=== PATIENT | male | born 1985 | race Caucasian/White ===

== ENCOUNTER → 2021-04-26 10:18 | Outpatient (CLI) | payer BC, SELFPAY ==
--- NOTE | ~2021-04-26 | XR_ITS ---
EXAMINATION: XR wrist RT min 3V DATE: 04/26/2021 10:37 INDICATION: Right wrist pain. TECHNIQUE: 4 views of right wrist were obtained. COMPARISON: None. FINDINGS: Bone alignment is normal. No fracture. Joint spaces are well maintained. IMPRESSION: 1. Normal right wrist. Reviewed, dictated and finalized at location A. IMPRESSION: 1. Normal right wrist.
--- NOTE | ~2021-04-26 | XR_ITS ---
EXAMINATION: XR hand RT 2V DATE: 04/26/2021 10:37 INDICATION: Right hand pain. TECHNIQUE: 3 views of right hand were obtained. COMPARISON: None. FINDINGS: Bone alignment is normal. No fracture. There is mild osteoarthritis of distal radioulnar jimenez int and third metacarpophalangeal joint. IMPRESSION: 1. Mild polyarticular osteoarthritis. Reviewed, dictated and finalized at location A.
== END ==
PROVIDERS: PCP Family Medicine; Visit Provider Nurse Practitioner Family
DX: M25.531 Pain in right wrist (principal); M19.041 Primary osteoarthritis, right hand
CPT/HCPCS: 73110; 73120

== ENCOUNTER 2021-11-07 16:52 | Outpatient (CLI) | payer BC, SELFPAY ==
--- NOTE | ~2021-11-07 | XR_ITS ---
EXAMINATION: XR foot LT min 3V DATE: 11/07/2021 18:00 INDICATION: Left foot pain. TECHNIQUE: 4 views of left foot were obtained. COMPARISON: None. FINDINGS: There is moderate hallux valgus. No fracture. There is mild osteoarthritis of first metatar sophalangeal joint. There is an enthesophyte at plantar aspect of calcaneal tuberosity. There is hete rotopic ossification in the area of Achilles tendon. IMPRESSION: 1. Moderate hallux valgus. 2. Mild osteoarthritis of first metatarsophalangeal joint. 3. 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 Reviewed, dictated and finalized at location A.
--- NOTE | ~2021-11-07 | MR_ITS ---
EXAMINATION: MR wrist RT wo con DATE: 11/07/2021 17:46 INDICATION: Dorsal right wrist pain TECHNIQUE: Magnetic resonance imaging (MRI) of the right wrist was performed without intravenous cont rast. Sequences performed include axial PD-weighted FSE and PD-weighted FS FSE, coronal PD-weighted F S FSE and T1-weighted SE, and sagittal PD-weighted FS FSE and PD-weighted FSE. COMPARISON: Right wrist radiographs dated 07/24/2021 FINDINGS: Intrinsic ligaments: There appears to be a likely central perforation of the scapholunate ligament. On the dorsal and vola r components remain intact. The lunotriquetral ligament is normal. Triangular fibrocartilage complex (TFCC): There is either marked thinning or more likely tear of the radial side of the central fibrocartilagin ous disc of the triangular fibrocartilage complex. There is adjacent mild cystic change at the ulnar side of the proximal articular surface of the lunate. These findings may be related to ulnocarpal imp action with 1-2 mm ulnar positive variance evident on the prior radiographs. There is also partial te ar of the foveal attachment of the triangular fibrocartilage complex with additional mild cystic haile ge underlying the foveal the ulna. The ulnar styloid attachment as well as the dorsal and volar radio ulnar ligaments are normal. The ulnar collateral ligament, ulnotriquetral ligament and meniscal homol ogue are normal. The extensor carpi ulnaris tendon sheath is normal. Extensor wrist: Minimal tendinopathy and small longitudinal split tear of the extensor carpi ulnaris tendon at the le poonam of the ulnar styloid process. Extensor tendons of the wrist are otherwise normal. No tenosynoviti s. Flexor wrist: The flexor tendons of the wrist are normal. No abnormality in the carpal tunnel with normal median n erve. Guyon's canal: Guyon's canal including the ulnar nerve and artery are normal. Bones/other: No fracture, avascular necrosis or pathologic marrow replacing process. Mild osteoarthritis of the mi dcarpal joint at the articulation between the hamate and the type II lunate with minimal cystic velazquez e at the proximal tip of the hamate. Remaining joint spaces are normal. IMPRESSION: 1. Partial tear of the triangular fibrocartilage complex including the foveal attachment in the centr al fiber cartilaginous disc, the latter which may be related to ulnocarpal impaction with 1 mm ulnar positive variance on prior radiographs and mild cystic change at the ulnar aspect of the proximal arun ate. 2. Minimal tendinopathy and very small longitudinal split tear of the extensor carpi ulnaris tendon. 3. Mild osteoarthritis at the lunohamate articulation of the midcarpal joint. Reviewed, dictated and finalized at location A. IMPRESSION: 1. Partial tear of the triangular fibrocartilage complex including the foveal a ttachment in the central fiber cartilaginous disc, the latter which may be rela bassam to ulnocarpal impaction with 1 mm ulnar positive variance on prior radiogra phs and mild cystic change at the ulnar aspect of the proximal lunate. 2. Minimal tendinopathy and very small longitudinal split tear of the extensor carpi ulnaris tendon. 3. Mild osteoarthritis at the lunohamate articulation of the midcarpal joint.
== END 2021-11-07 16:53 | disposition home or self-care (01) ==
PROVIDERS: PCP Family Medicine; Visit Provider Orthopaedic Surgery
DX: M20.12 Hallux valgus (acquired), left foot (principal); M19.031 Primary osteoarthritis, right wrist; M19.072 Primary osteoarthritis, left ankle and foot
CPT/HCPCS: 73221; 73630

== ENCOUNTER 2021-12-09 14:30 | Outpatient (RCR) | payer BC, SELFPAY ==
--- NOTE | 2021-11-28 17:29 | PTOPEVAL ---
PHYSICAL THERAPY EVALUATION AND PLAN OF CARE Thank you for referring Jamin Steel to [facility][Note 3].? The patient is scheduled to be seen for therapy? 1x/week for 3 weeks. Please review, sign, date and return this plan of care DARCIE. I agree with and certify that the following plan of care is medically necessary. 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 States that he wore an ankle splint for about a month. Then started wearing tennis shoes again. He tells me that the bruising is coming back. States no pain with walking. Stair climbing the tendons feel tight. Will walk sideways down the steps. Pain Score 0: Self Report Lower Extremity Range of Motion Ankle/Foot Range of Motion Left Foot/Toe Range of Motion Comments increased tone and spasticity influences ankle ROM; whe knee is extended he rests in 45deg of plantarflexion and has little to no active dorsiflexion; when knee is flexed he is able to at the least -10deg from neutral Lower Extremity Muscle Strength Testing Ankle Strength Left Ankle Dorsiflexion Strength 4 Good Ankle Plantarflexion Strength 4 Good Ankle Eversion Strength 4 Good Ankle Inversion Strength 4 Good Ankle Strength Comments generally normal strength; MMT skewed due to tonal influence performs 10 bilateral heel raises; unable to heel walk likely due to extensor toe preventing dorsiflexion with knee extended Palpation mild edema noted at lateral malleolus - non-tender palpation; states he has not feeling in the left side of body due to stroke Stair Climbing Assessment Technique Side Step Stair Climbing Di
--- NOTE | 2021-12-16 17:48 | PCPTNOTE ---
Patient did not show up for scheduled appointment this date.
--- NOTE | 2021-12-17 15:28 | PCPTNOTE ---
PHYSICAL THERAPY DISCHARGE NOTE Attending Provider: Bryce Quigley APN Patient:Jamin Steel Date of :1985 Patient has not returned for any further treatments since 12/09/2021, therefore will be discharged at this time. Patient?s initial visit was on 11/28/2021 and had a total of3 visits. He participated in physical therapy following a fall which resulted in a sprained ankle. Upon initial evaluation he had no pain and minimal strength deficit and balance deficit. During his attended sessions he tolerate activity and strengthening very well and was provided with HEP. Thank you for referring this patient to [facility]. Please review, sign, date and return this discharge summary DARCIE. I have been updated about the patient's current status and I agree with discharge from the above service at this time. Referring Physician Date
== END 2021-12-18 08:50 | disposition home or self-care (01) ==
LOC: ANHPT 14:30
PROVIDERS: PCP Family Medicine; Referring Provider Nurse Practitioner; Visit Provider Nurse Practitioner
DX: M25.572 Pain in left ankle and joints of left foot (principal)
CPT/HCPCS: 97110; 97112; 97161; 97530

== ENCOUNTER 2022-04-08 15:30 | Outpatient (RCR) | payer BC, SELFPAY ==
--- NOTE | 2022-02-14 10:14 | PTOPEVAL ---
PHYSICAL THERAPY INITIAL EVALUATION. Thank you for referring Jamin Steel to [facility].? The patient is scheduled to be seen for therapy? 1x/week for 4 weeks. Please review, sign, date and return this plan of care DARCIE. I agree with and certify that the following plan of care is medically necessary. Referring Physician Date Attending Provider: Tomas Frazier MD *PT Outpatient Evaluation Start: 02/14/22 Evaluation Information Diagnosis L ankle sprain Onset 2 months Subjective Information Pt states he was walking down Query Text:As Reported By Patient/ a set of step when he rolled Family his ankle. Pt states he can standing for 8 hours before needing to sit down. Pt states he walks the same as he usual does. He has a stroke at making him R side- dominate. Pt states since his ankle sprain, two times he has had a pain that makes it hard to stand on. Pt states it feels more stiff than usual Prior Level of Function Occupation works at [employer] Pain Assessment Self Report Pain Assessment Left Ankle(s) Reported Pain Level 3 Pain Description Aching,Dull Pain Frequency Acute,Intermittent Lowest Pain Intensity 3 Greatest Pain Intensity 3 Pain Aggravating Factors None Lower Extremity Range of Motion Ankle/Foot Range of Motion Right Ankle Dorsiflexion With Knee Extension 0 active Ankle Dorsiflexion With Knee Extension 5 passive Ankle Dorsiflexion With Knee Flexed 15 active Ankle Dorsiflexion With Knee Flexed 15 passive Ankle Plantarflexion Range of Motion - 60 active Ankle Eversion Range of Motion - Active 10 Ankle Eversion Range of Motion - Passive 12 Ankle Inversion Range of Motion - Active 15 Ankle Inversion Range of Motion -passive 30 Foot/Toe Range of Motion Comments 1st met passive extension 60 deg Left Ankle Dorsiflexion With Knee Extension -50 active Ankle Dorsiflexion With Knee Extension 10 passive Ankle Dorsiflexion With Knee Flexed -60 active Ankle Dorsiflexion With Knee Flexed 10 passive Ankle Plantarflexion Range of Motion - 55 active Ankle Eversion Range of Motion - Active 0 Ankle Eversion Range of Motion - Passive 5 Ankle Inversion Range of Motion - Active 0 Ankle Inversion Range of Motion -passive 25 Foot/Toe Range of Motion Comments 1st met passive extension 30 deg Lower Extremity Muscle Strength Testing Gross Lower Extremity Strengt
--- NOTE | 2022-03-27 08:08 | PCPTNOTE ---
Called and left voicemail for patient regarding having no follow up appointment scheduled. If we do not not hear back from him in the next week he will be discharged.
--- NOTE | 2022-04-24 13:50 | PTOPDC ---
Assessment and note entered by Lupillo Scott, PT Evaluation Information Assessment Status Progress Jamin comes into the clinic today reporting he resprained his L ankle. The ankle shows no tenderness with touch or range of motion. No swelling is noted. Patient is wearing shoes that are falling apart and an old heel lift. Recommend to patient to try to get some sort of bracing to better support his L ankle and new shoes. Improvement in footwear will probably be more beneficial than continued physical therapy. Discharged from physical therapy services.
== END 2022-05-06 13:54 | disposition home or self-care (01) ==
LOC: ANHGOSHPT 15:30
PROVIDERS: PCP Family Medicine; Visit Provider Orthopaedic Surgery
DX: S93.402D Sprain of unspecified ligament of left ankle, subsequent encounter (principal)
CPT/HCPCS: 97110; 97112; 97140; 97161

== ENCOUNTER → 2023-02-23 13:51 | Outpatient (CLI) | payer BC, SELFPAY ==
--- NOTE | ~2023-02-23 | US_ITS ---
EXAMINATION: US soft tissue head and neck DATE: 02/23/2023 14:15 INDICATION: Nontoxic goiter, unspecified. TECHNIQUE: Multiple ultrasound images of the thyroid were obtained. COMPARISON: Ultrasound 02/25/2016, cervical spine CT 05/11/12 FINDINGS: The right thyroid lobe measures 8.1 x 4.5 x 3.0 cm. The left thyroid lobe measures 11.3 x 6.4 x 5.7 cm. There are nodules involving almost all of the thyroid with similar ultrasound appearance without normal intervening parenchyma. In the right thyroid lobe, there is a 5.6 cm solid, isoechoic, wider than tall nodule with lobulated margin without echogenic foci (TR4). In the left thyroid lobe, there is a 10.1 cm solid, isoechoic, wider than tall nodule with smooth margin without echogenic foci (TR3) . IMPRESSION: 1. Multinodular goiter with enlargement from 02/25/2016. Consider ultrasound-guided fine-needle aspira tion. Reviewed, dictated and finalized at location E. IMPRESSION: 1. Multinodular goiter with enlargement from 02/25/2016. Consider ultrasound-bandar ded fine-needle aspiration.
== END ==
PROVIDERS: PCP Family Medicine; Visit Provider Otolaryngology
DX: E04.2 Nontoxic multinodular goiter (principal)
CPT/HCPCS: 76536

== ENCOUNTER 2023-10-04 00:47 | Emergency (ER) | payer BC, SELFPAY ==
--- NOTE | ~2023-10-04 | XR_ITS ---
XR chest 1V portable DATE: 10/04/2023 02:01 INDICATION: Shortness of breath TECHNIQUE: Portable upright AP chest views on October 04, 2023 at 0 154 and 0155 hours COMPARISON: None FINDINGS: Normal heart size. No hilar or mediastinal enlargement. No pulmonary infiltrate or consolid ation, pleural effusion or pulmonary vascular congestion or pneumothorax. Mild thoracic levoscoliosis. IMPRESSION: No active cardiopulmonary disease Reviewed, dictated and finalized at location A.
[2023-10-04 00:47] VITALS: BP 158/121; PULSE 91; RESP 23; TEMP 36.7; O2SAT 100
[2023-10-04 00:56] VITALS: PULSE 87; O2SAT 100; O2SAT 99
--- NOTE | 2023-10-04 00:58 | ECG_ITS ---
Measurements Intervals [place] Rate: 89 P: 36 [place]: 164 QRS: 61 QRSD: 101 T: 31 QT: 357 AVG RR: 668 QTc: 404 QTCB: 436 QTCF: 408 Interpretive Statements SINUS RHYTHM NORMAL ECG SEE SCANNED COPY FOR SIGNATURE MTDD
[2023-10-04 02:05] VITALS: BP 146/90; PULSE 100; RESP 18; O2SAT 98
[2023-10-04 02:42] LABS: Basophils Percent Auto 0.6 % (0.2-1.2); Eosinophils Absolute Auto 0.2 K/mm3 (0-0.3); Eosinophils Percent Auto 2.3 % (0-4.4); Hematocrit 40.5 % (42.0-52.0); Hemoglobin 13.6 g/dL (14.0-18.0); Immature Granulocyte Absolute 0.02 K/mm3 (0.00-0.031); Immature Granulocyte Percent A 0.3 % (0-0.5); Lymphocytes Absolute Auto 2.21 K/mm3 (0.9-3.2); Lymphocytes Percent Auto 32.4 % (18.3-44.2); Mean Corpuscular HGB Conc 33.6 g/dl (32-36); Mean Corpuscular Hemoglobin 28.3 pg (26-34); Mean Corpuscular Volume 84.2 fl (80-100); Mean Platelet Volume 9.4 fl (7.4-10.4); Monocytes Absolute Auto 0.7 K/mm3 (0.1-0.6); Monocytes Percent Auto 10.1 % (2.6-8.5); Neutrophils Absolute Auto 3.7 K/mm3 (1.3-6.7); Neutrophils Percent Auto 54.3 % (45.5-73.1); Platelet Count Result 307 k/mm3 (150-375); Red Blood Count 4.81 M/mm3 (4.6-6.20); Red Cell Distribution Width 13.5 % (11.5-14.5); White Blood Count 6.8 K/mm3 (4.5-10.0)
[2023-10-04 02:53] LABS: Alanine Aminotransferase 25 U/L (6-50); Albumin Level 4.8 g/dL (3.5-5.1); Alkaline Phosphatase 88 U/L (38-126); Anion Gap 11 mmol/L (4-12); Aspartate Amino Transferase 26 U/L (17-59); Bilirubin,Total 0.7 mg/dL (0.2-1.3); Blood Urea Nitrogen 11 mg/dL (9-20); Calcium 9.7 mg/dL (8.4-10.2); Carbon Dioxide 23 mmol/L (22-30); Chloride 104 mmol/L (98-107); Creatine Kinase 142 U/L (55-170); Estimated CRCL calculation 148 ml/min; Estimated Glomerular Filt Rate > 60; Glucose 118 mg/dL (65-110); Lactic Acid Reflex 2.1 mmol/L (0.7-2.0); Potassium 3.8 mmol/L (3.4-5.0); Sodium 138 mmol/L (137-145)
[2023-10-04 03:46] VITALS: BP 148/95; PULSE 96; RESP 17; O2SAT 99
--- NOTE | 2023-10-04 04:15 | ED.GENADULT ---
HPI - General Adult General Chief complaint: Seizure Stated complaint: SZ W/ Hx OF EPILEPSY Time Seen by Provider: 10/04/23 04:11 History of Present Illness HPI narrative: Patient is a 30-year-old male who presents to the emergency department this morning due to concern for tremors. Patient does have a history of seizure disorder and today went to go see a movie which had a lot of flashing lights and shortly after started to have some tremors which was concerning to him as he was concerned he might go into a seizure. Patient does have a history of epilepsy and does take his seizure medications regularly. He took some Tylenol prior to arrival upon arrival patient noted that the tremoring has tab. He is currently denying any symptoms. Patient states that he feels well and he is answering all questions appropriately and denying any headache, dizziness, focal weakness acute Related Data Home Medications Medication Instructions Recorded Confirmed eslicarbazepine 800 mg tablet 800 mg PO DAILY 06/01/19 04/22/23 (Aptiom) lamotrigine 200 mg tablet 600 mg PO BID 10/12/19 04/22/23 cyanocobalamin (vitamin B-12) 1,000 mcg PO DAILY 05/04/23 1,000 mcg tablet Allergies Allergy/AdvReac Type Severity Reaction Status Date / Time Penicillins Allergy Severe Seizure Verified 10/04/23 00:55 Review of Systems Review of Systems: All systems are reviewed and are negative unless stated otherwise in the HPI. [facility] Past Medical History Medical History Acute non-recurrent maxillary sinusitis Acute sinusitis BMI 36.0-36.9,adult Cellulitis ear and ear canal COVID-19 (07/04/20) COVID test on 07/11/2020 positive Enlarged thyroid (~05/11/12) Multinodular goiter on ultrasound 02/23/2023 with 5.6 cm nodule right lobe and 10.1 cm nodule in the left lobe increased from previous study. TSH normal at 2.02 on 04/28/2023. Epilepsy Exposure to COVID-19 virus High cholesterol Left foot pain (~08/2021) Obesity (BMI 35.0-39.9 without comorbidity) Pharyngitis Right hand pain Right otitis externa Right wrist pain Seborrhea ear canal Superficial laceration of scalp Vitamin B12 deficiency (04/28/23) level low at 347 with goal greater than 400 with hemoglobin 14.4 on 04/28/2023. Surgical History Surgical History H/O foot surgery H/O hand surgery Family History Family History Mother Family history of bipolar disorder Hypertension Other Heart disease Social History Social History Social History: Caffeine-tea Smoking status: Former smoker Alcohol intake: former Substance use: never Substance use type: does not use Lack of Transportation: No Lack of Food: Never True Current Housing: Decline to Answer Concerned About Future Housing: Decline to Answer Difficulty Paying Gas/Electric Bills: Decline to Answer Difficulty Paying for Meds: YES Currently Unemployed: No Education: Bachelor's Degree Difficulty w/ Childcare or Family Care: Decline to Answer Living arrangements: with family Occupation/Education: unemployed Gender identity (if verbalized by the patient): Male Exam Narrative: General: Alert, awake, afebrile, in no acute distress. Cardiovascular: Regular rate and rhythm, no murmurs, rubs or gallops, no peripheral edema. Respiratory: Clear to auscultation bilaterally, no tachypnea, no wheezing, no rhonchi, no rubs, no respiratory distress. Abdomen: Soft, nontender, nondistended, no rebound, no guarding, no peritoneal signs. Musculoskeletal: No joint swelling or deformity, normal muscle tone. Skin: No rashes or petechia, no signs of infection. Psychiatric: Alert and oriented, normal behavior and judgment for situation. Neurological: Alert and oriented to person, place, and time
[2023-10-04 05:39] LABS: Reflex Lactic Acid Yes or No Add Lactic
== END 2023-10-04 04:26 | disposition home or self-care (01) ==
LOC: ANHED 04:23
PROVIDERS: Emergency Provider Emergency Medicine; PCP Family Medicine
DX: G40.909 Epilepsy, unspecified, not intractable, without status epilepticus (principal); Z86.16 Personal history of COVID-19; E78.00 Pure hypercholesterolemia, unspecified; E04.2 Nontoxic multinodular goiter; E53.8 Deficiency of other specified B group vitamins; E66.9 Obesity, unspecified; Z68.36 Body mass index [BMI] 36.0-36.9, adult; Z87.891 Personal history of nicotine dependence
CPT/HCPCS: 36415; 71045; 80053; 82550; 83605; 85025; 93005; 99283

== ENCOUNTER 2024-08-08 13:09 | Emergency (ER) | payer BC, SELFPAY ==
--- NOTE | ~2024-08-08 | XR_ITS ---
EXAMINATION: XR chest 2V DATE: 08/08/2024 13:49 INDICATION: Illness for 10 days. TECHNIQUE: Frontal and lateral views of the chest were obtained. COMPARISON: Chest single view 10/04/2023 FINDINGS: There is no pneumonia, pleural effusion, or pneumothorax. The heart size is normal. IMPRESSION: 1. No acute cardiopulmonary disease. Reviewed, dictated and finalized at location A. TANT GENERAL
[2024-08-08 13:23] VITALS: BP 145/85; PULSE 93; RESP 16; TEMP 36.8; O2SAT 97
--- NOTE | 2024-08-08 13:35 | ED_ITS ---
HPI - URI/Sore Throat General Chief Complaint: Upper Respiratory Infection Stated Complaint: Chest Congestion Time Seen by Provider: 08/08/24 13:30 Source: patient, RN notes reviewed and old records reviewed Mode of arrival: ambulatory Limitations: no limitations History of Present Illness HPI Narrative: 39 ear old male presents to [facility] care with complaints of being ill for the past 10 days with thick white sinus drainage, productive cough of white mucous also. Patient reports that he has had antibiotics with no improvement in his symptoms. Patient reports that he has had exertional dyspnea denies any fevers, chills or an nausea, vomiting or body aches,sore throat or any headaches. Patient reports that he has taken Mucinex with no improvement. MD elicited complaint: cough, rhinorrhea and nasal congestion Onset (ago): day(s) () Severity: moderate Treatments prior to arrival: antibiotics and other (Mucinex) Related Data Home Medications ?Medication ?Instructions ?Recorded ?Confirmed ?Last Taken ?Type eslicarbazepine 800 mg tablet 800 mg PO DAILY 06/01/19 07/06/24 Unknown History (Aptiom) lamotrigine 200 mg tablet 600 mg PO BID 10/12/19 07/06/24 Unknown History Allergies Allergy/AdvReac Type Severity Reaction Status Date / Time Penicillins Allergy Severe Seizure Verified 08/08/24 13:27 Review of Systems Review of Systems: CONSTITUTIONAL: Reports some malaise, no chills, sweats, or fever. EYES: Denies visual changes, redness, or discharge. ENT: Reports rhinorrhea, congestion, sinus pain,no otalgia and no sore throat. CARDIOVASCULAR: Denies chest pain, palpitations, or edema. RESPIRATORY: Reports productive cough.? States some dyspne with exertion GASTROINTESTINAL: Denies abdominal pain, nausea, vomiting, diarrhea SKIN: Denies rash or itching. MUSCULOSKELETAL: Denies myalgia. NEUROLOGIC: Denies headache. All systems reviewed & are unremarkable except as noted in HPI and below PMFSH Past Medical History Medical History Acute non-recurrent maxillary sinusitis BMI 35.0-35.9,adult Hypersomnia history of LUISA on home sleep study 5 years ago untreated. Acute sinusitis Vitamin B12 deficiency (04/28/23) level low at 347 with goal greater than 400 with hemoglobin 14.4 on 04/28/2023. Ear itching Otitis externa, fungal, right ear Hypothyroid Enlarged thyroid (~05/11/12) Multinodular goiter on ultrasound 02/23/2023 with 5.6 cm nodule right lobe and 10.1 cm nodule in the left lobe increased from previous study. TSH normal at 2.02 on 04/28/2023. BMI 36.0-36.9,adult Obesity (BMI 35.0-39.9 without comorbidity) Seborrhea ear canal Cellulitis ear and ear canal Left ankle sprain Left foot pain (~08/2021) High cholesterol Epilepsy Right wrist pain Right hand pain COVID-19 (07/04/20) COVID test on 07/11/2020 positive Pharyngitis Exposure to COVID-19 virus Right otitis externa Superficial laceration of scalp Body mass index (BMI) 40.0-44.9, adult (01/06/19) Surgical History Surgical History H/O foot surgery H/O hand surgery Family History Family History Mother Family history of bipolar disorder Hypertension Other Heart disease Social History Social History Social History: Caffeine-tea Smoking status: Former smoker Alcohol intake: former Substance use: never Substance use type: does not use Lack of Transportation: No Lack of Food: Never True Current Housing: Decline to Answer Concerned About Future Housing: Decline to Answer Difficulty Paying Gas/Electric Bills: Decline to Answer Difficulty Paying for Meds: YES Currently Unemployed: No Education: Bachelor's Degree Difficulty w/ Childcare or Family Care: Decline to Answer Living arrangements: with family Occupation/Education: unemployed Gender identity (if verbalized by the patient): Male Comments At time of signature, agree with nursing past medical, surgical, social and family history. There is no relevant family history pertinent to the presenting complaint Exam Narrative: GENERAL: Well-appearing, well-nourished, and in no acute distress. HEAD: Normocephalic EYES: PERRLA, conjunctivae clear ENT: Nares clear, turbinates edematous and erythematous, thick white discharge. Mucous membranes moist. TM pearly bautista with dull light reflex bilaterally; no tragal tenderness. Oropharynx erythematous without lesions. Tonsils not enlarged and without exudate, no drooling, no hoarseness, no trismus, uvula midline.post nasal drainage NECK: Supple. No lymphadenopathy CHEST: Clear to auscultation, breath sounds equal. No wheezing, rhonchi, rales, or stridor. No respiratory distress, speaks in full sentences.productive cough SAO2 97% on room air HEART: Regular rate and rhythm. No murmur heard. SKIN: Warm, dry, no rash. NEURO: Alert and oriented x3. PSYCH: Normal mood and affect Course Course Emergency Course: Patient is aware of diagnosis, understands and agrees to treatment plan.? Anticipatory guidance given.? Patient agrees to follow-up as directed and is aware of reasons to seek care at the emergency department. Portions of this record may have been created with voice recognition software Level of Care: Express Care Visit Vital Signs Vital signs: Vital Signs Temperature 36.8 C 08/08/24 13:23 Pulse Rate 93 08/08/24 13:23 Respiratory Rate 16 08/08/24 13:23 Blood Pressure 145/85 H 08/08/24 13:23 Pulse Oximetry 97 08/08/24 13:23 Oxygen Delivery Room Air 08/08/24 13:23 Temperature 36.8 C 08/08/24 13:23 Pulse Rate 93 08/08/24 13:23 Respiratory Rate 16 08/08/24 13:23 Blood Pressure 145/85 H 08/08/24 13:23 Pulse Oximetry 97 08/08/24 13:23 Oxygen Delivery Room Air 08/08/24 13:23 Reviewed MDM - URI/Sore Throat MDM Narrative Medical decision making narrative: Differential diagnosis considered: Lemos virus, strep pharyngitis, allergic rhinitis, upper respiratory tract infection, sinusitis, rhinosinusitis, nasopharyngitis. viral pharyngitis, otitis media, otitis externa, pneumonia, bronchitis, viral cough syndrome, viral syndrome, and influenza.? Exam findings show no acute concerns or changes; patient is non-toxic appearing and is in no distress.? Patient is appropriate for outpatient treatment and follow-up. Differential Diagnosis Differential diagnosis: Likely upper respiratory infection, sinusitis, viral infection, bronchitis and other (acute cough) Medical Records Attestation: I reviewed the patient's medical records. Lab Data Attestation: I reviewed the patient's lab results. Imaging Data Attestation: I personally reviewed and interpreted this imaging study as follows: My impression: no acute cardiopulmonary disease Radiologist's impression: [facility] [address] [facility] [place] [address] XRay Report Signed Patient: Jamin Steel : 1985 MR#: [id number] Age: 39 Acct:[id number] Loc: [facility] ADM Date: 08/08/24Attending Dr: Ordering Physician: Deborah Chow APRN Date of Service: 08/08/24 Procedure(s): XR chest 2V Accession Number(s): [id number] cc: SUPERVISOR [employer] ASSEMBLY PHYSICIAN; Deborah hCow THERAPEUTIC MENTOR~ EXAMINATION: XR chest 2V DATE: 08/08/2024 13:49 INDICATION: Illness for 10 days. TECHNIQUE: Frontal and lateral views of the chest were obtained. COMPARISON: Chest single view 10/04/2023 FINDINGS: There is no pneumonia, pleural effusion, or pneumothorax. The heart size is normal. IMPRESSION: 1. No acute cardiopulmonary disease. Reviewed, dictated and finalized at location A. INTERN Please be advised this is a medical document. It is intended for [id number] communication. It is written in medical language and may contain unfamiliar abbreviations or verbiage. Medical documents are intended to carry relevant information, facts as evident, and the clinical opinion of the practitioner at the time of the encounter. This report may have been done utilizing a voice recognition system. Attempts have been made to correct errors. However, there may be uncorrected grammatical, spelling, and recognition errors present. The file time of this note does not necessarily represent the time of service. Dictated By: Elroy Roach MD 08/08/24 1353 Signed By: <Electronically signed by Elroy Roach MD in OV> Critical Care Time Critical Care Time Critical Care Time: No Discharge Plan Discharge Clinical Impression: Upper respiratory infection Qualifiers: URI type: unspecified URI Qualified Code(s): J06.9 - Acute upper respiratory infection, unspecified Patient Disposition: Home, Self-Care Condition: Stable Instructions: Upper Respiratory Infection (ED) Additional Instructions: Increase fluids especially juices and water [id number] cough and cold medicine of your choice for your symptoms monitor your temperature Cough tablets as directed for cough--do not bite, chew or suck on--swallow whole Tylenol or ibuprofen for any fever pain Steroids as directed--take with food heat to the face 20-30 minutes 4-6 times a day for pain Salt water gargles, throat lozenges or throat sprays as desired If your symptoms persist, change or worsen significantly before you can contact your personal physician then please, without delay, go to the emergency department for further evaluation. Follow-up with PCP in 7-10 days or sooner if needed Follow up with PCP soon in regards to your blood pressure which is elevated above threshold for referral. Blood pressure above 120/80 may indicate pre- hypertension. Patient Language: Japanese Prescriptions: New benzonatate 200 mg capsule 200 mg PO TID PRN (Reason: cough) Qty: 14 0RF prednisone 20 mg tablet 20 mg PO BID Qty: 10 0RF Rx Instructions: take in am and early evening with food for 5 days No Action lamotrigine 200 mg tablet 600 mg PO BID aripiprazole [Abilify] 2 mg tablet 2 mg PO DAILY Qty: 30 11RF clotrimazole 1 % solution 1 applic topical TID Qty: 30 3RF Rx Instructions: put 4 drops in each ear t.i.d. with ear up for 30 seconds afterwards clobetasol 0.05 % cream 1 applic topical .qd-bid Qty: 15 1RF Rx Instructions: External ear one to two times per day Aptiom 800 mg tablet 800 mg PO DAILY atorvastatin 20 mg tablet 20 mg PO DAILY Qty: 90 3RF azithromycin 250 mg tablet See Rx Instructions PO .COMPLEX Qty: 6 0RF Rx Instructions: For 250 mg dose pack: take 500 mg today (day 1), then 250 mg for 4 days (days 2-5) PO Follow-up/Referrals: PHYSICIAN,SUPERVISOR [employer] ASSEMBLY [Primary Care Provider] - Time of Disposition: 14:28 Quality Eddi Coma Scale Eyes: Open Verbal: Oriented and Alert Motor: Follows Commands Eddi Coma Total Score: 15
== END 2024-08-08 14:32 | disposition home or self-care (01) ==
PROVIDERS: Emergency Provider Registered Nurse
DX: J06.9 Acute upper respiratory infection, unspecified (principal); E53.8 Deficiency of other specified B group vitamins; E03.9 Hypothyroidism, unspecified; E78.00 Pure hypercholesterolemia, unspecified; Z87.891 Personal history of nicotine dependence
CPT/HCPCS: 71046; 99213; G0463

== ENCOUNTER 2024-10-26 10:19 | Emergency (ER) | payer BC, SELFPAY ==
[2024-10-26 10:31] VITALS: BP 154/87; PULSE 83; RESP 16; TEMP 36.7; O2SAT 98
--- NOTE | 2024-10-26 10:44 | PC.NURSE ---
[id number] To room to applications consultant genital exam
--- NOTE | 2024-10-26 10:45 | ED.MALEGU ---
HPI - Male Genitourinary General Chief complaint: Urogenital-Male Stated complaint: BURNING URINATION/GENITAL PAIN Time Seen by Provider: 10/26/24 10:35 Source: patient and RN notes reviewed Mode of arrival: ambulatory Limitations: no limitations History of Present Illness HPI Narrative: 39-year-old male presents Express Care complaining of burning with urination. Patient states symptoms started today. Patient also states that he feels urethral pain that radiates into his scrotum. Patient describes the pain as a burning sensation. Patient denies any foul-smelling urine, cloudy urine, or hematuria. Patient denies any unprotected sex. Patient denies any concern for STIs. Patient denies any discharge. Patient denies any abdominal pain, body aches, rashes, chills, fevers, flank pain. Patient said he had symptoms similar approximately 4 months ago that subsided on their own. Patient has a history of seizures and a prior stroke that affected the right side of his body Related Data Home Medications ?Medication ?Instructions ?Recorded ?Confirmed ?Last Taken ?Type eslicarbazepine 800 mg tablet 800 mg PO DAILY 06/01/19 07/06/24 Unknown History (Aptiom) lamotrigine 200 mg tablet 600 mg PO BID 10/12/19 07/06/24 Unknown History Allergies Allergy/AdvReac Type Severity Reaction Status Date / Time Penicillins Allergy Severe Seizure Verified 10/26/24 10:29 aspirin Allergy Unknown Unknown Verified 10/26/24 10:29 Review of Systems Review of Systems: CONSTITUTIONAL: Denies fever, chills, or sweats. EYES: Denies visual changes, redness, or discharge. ENT: Denies rhinorrhea, congestion, sore throat, or otalgia. CARDIOVASCULAR: Denies chest pain, palpitations, or edema. RESPIRATORY: Denies cough or dyspnea. GASTROINTESTINAL: Denies abdominal pain, nausea, vomiting, or diarrhea. GENITOURINARY: Denies hematuria or penile discharge. Positive for dysuria. SKIN: Denies rash or itching. MUSCULOSKELETAL: Denies back pain, joint pain, or myalgia. NEUROLOGIC: Denies headache, numbness, or weakness. PSYCHIATRIC: Denies anxiety or depression. All other systems reviewed are negative, except as documented in HPI. [facility] Past Medical History Medical History (Updated 10/26/24 @ 11:27 by Tim Portillo APRN) Dysuria Acute non-recurrent maxillary sinusitis BMI 35.0-35.9,adult Hypersomnia history of LUISA on home sleep study 5 years ago untreated. Acute sinusitis Vitamin B12 deficiency (04/28/23) level low at 347 with goal greater than 400 with hemoglobin 14.4 on 04/28/2023. Ear itching Otitis externa, fungal, right ear Hypothyroid Enlarged thyroid (~05/11/12) Multinodular goiter on ultrasound 02/23/2023 with 5.6 cm nodule right lobe and 10.1 cm nodule in the left lobe increased from previous study. TSH normal at 2.02 on 04/28/2023. BMI 36.0-36.9,adult Obesity (BMI 35.0-39.9 without comorbidity) Seborrhea ear canal Cellulitis ear and ear canal Left ankle sprain Left foot pain (~08/2021) High cholesterol Epilepsy Right wrist pain Right hand pain COVID-19 (07/04/20) COVID test on 07/11/2020 positive Pharyngitis Exposure to COVID-19 virus Right otitis externa Superficial laceration of scalp Body mass index (BMI) 40.0-44.9, adult (01/06/19) Surgical History Surgical History H/O foot surgery H/O hand surgery Family History Family History Mother Family history of bipolar disorder Hypertension Other Heart disease Social History Social History Social History: Caffeine-tea Smoking status: Former smoker Alcohol intake: former Substance use: never Substance use type: does not use Lack of Transportation: No Lack of Food: Never True Current Housing: Decline to Answer Concerned About Future Housing: Decline to Answer Difficulty Paying Gas/Electric Bills: Decline to Answer Difficulty Paying for Meds: YES Currently Unemployed: No Education: Bachelor's Degree Difficulty w/ Childcare or Family Care: Decline to Answer Living arrangements: with family Occupation/Education: unemployed Gender identity (if verbalized by the patient): Male Comments At the time of my signature, I reviewed and agree with the nursing past medical, surgical, social, and family history. There is no relevant family history pertinent to the patient complaint. Exam Narrative: GENERAL: This is a well-nourished, well-developed adult, in no apparent distress. They are non ill-appearing, nontoxic appearing. HEAD: normocephalic, atraumatic. EYES: Sclera clear/white. Conjunctiva normal. Vision is grossly intact. Extraocular movements intact EARS: External ears normal, Hearing grossly intact. NOSE: External nose normal THROAT: Mucous membranes moist, NECK: Normal range of motion CARDIOVASCULAR: Regular rate and rhythm without murmurs, gallops, or rubs. RESPIRATORY: Clear to auscultation. Breath sounds equal bilaterally. No wheezes, rales, or rhonchi. GASTROINTESTINAL: Abdomen soft, non-tender, nondistended. Bowel sounds are active. No hepato-splenomegaly, or palpable masses. No guarding. GENITOURINARY: Penis: Penis is normal. No rash or suspicious lesions to the genitals. Glans penis without swelling, redness or discharge. Urethra without swelling, redness or discharge. Scrotum without swelling or tenderness. Testes soft, without tenderness or swelling. No high riding testis. Cremasteric reflex intact bilaterally. SKIN: warm, Dry, intact with no suspicious lesions or rash, good texture and turgor. NEURO: awake, alert, and oriented to person, place and time. Right-sided deficits from previous stroke. EXTREMITIES: No joint tenderness, effusion, or edema noted. BACK: Nontender without deformity. No CVA tenderness. Course Course Emergency Course: Portions of this record may have been created with voice recognition software Level of Care: Express Care Visit Vital Signs Vital signs: Vital Signs Temperature 98.1 F 10/26/24 10:31 Pulse Rate 83 10/26/24 10:31 Respiratory Rate 16 10/26/24 10:31 Blood Pressure 154/87 H 10/26/24 10:31 Pulse Oximetry 98 10/26/24 10:31 Temperature 98.1 F 10/26/24 10:31 Pulse Rate 83 10/26/24 10:31 Respiratory Rate 16 10/26/24 10:31 Blood Pressure 154/87 H 10/26/24 10:31 Pulse Oximetry 98 10/26/24 10:31 Reviewed MDM - Male Genitourinary MDM Narrative Medical decision making narrative: TWIST score 0. Low suspicion for testicular torsion. Urine dipstick negative for any evidence of infection. Urine culture pending. Genital exam performed with Alexus LARIOS pump room operator in the room that was unremarkable. No tenderness to palpation of scrotum, epididymis, or testicles. Cremasteric reflex intact bilaterally. No swelling of the testicles or scrotum. No evidence for epididymitis. Patient denies being sexually active for any concerns for STIs. Recommend close follow-up follow-up with primary care provider. Discussed physical exam findings. Advised supportive measures and signs/symptoms to go to the ER. Pt is appropriate for outpt treatment and f/u. Differential Diagnosis Differential diagnosis: Likely urinary tract infection, urethritis, epididymitis and other (Testicular torsion) Lab Data Attestation: I reviewed the patient's lab results. Labs: Lab Results 10/26/24 Range/Units 11:08 POC Urine Color Yellow POC Urine Clarity Clear POC Urine pH 6.5 POC Ur Specif [place] 1.025 POC Urine Protein 1+ (Negative) POC Ur Glucose (UA) Negative (Negative) POC Urine Ketones Negative (Negative) POC Urine Blood Negative (Negative) POC Urine Nitrite Negative (Negative) POC Urine Bilirubin Negative (Negative) POC Urine Urobilinogen 0.2 POC U Leukocyte Esteras Negative (Negative) Critical Care Time Critical Care Time Critical Care Time: No Discharge Plan Discharge Clinical Impression: Dysuria Patient Disposition: Home Condition: Stable Instructions: Dysuria (ED) Additional Instructions: Your urine dipstick was negative for any evidence of infection. A urine culture will be sent off you will be contacted if any bacteria is identified you will be prescribed appropriate antibiotics at that time. Please follow-up with your primary care provider in 3 days for further evaluation and management. If he develops worsening pain, fevers, abdominal pain or any other concerns please go to the ER immediately. Patient Language: Slovenian Prescriptions: No Action lamotrigine 200 mg tablet 600 mg PO BID Aptiom 800 mg tablet 800 mg PO DAILY sulfamethoxazole-trimethoprim 800-160 mg tablet 1 tablet PO Q12H Qty: 20 0RF Follow-up/Referrals: Bertin Choudhury MD [Primary Care Provider] - Time of Disposition: 11:27
[2024-10-26 11:11] LABS: EDUAAPPEAR Clear; EDUABILI Negative (Negative); EDUABLOOD Negative (Negative); EDUACOLOR1 Yellow; EDUAGLUCOSE Negative (Negative); EDUAKETONE Negative (Negative); EDUALEUKO Negative (Negative); EDUANITRATE Negative (Negative); EDUAPH 6.5; EDUAPROTEIN 1+ (Negative); EDUASPGRAVITY 1.025; EDUAUROBILI 0.2
== END 2024-10-26 11:30 | disposition home or self-care (01) ==
PROVIDERS: PCP Family Medicine
DX: R30.0 Dysuria (principal); G40.909 Epilepsy, unspecified, not intractable, without status epilepticus; E03.9 Hypothyroidism, unspecified; E66.9 Obesity, unspecified; Z68.36 Body mass index [BMI] 36.0-36.9, adult; E78.00 Pure hypercholesterolemia, unspecified; Z86.16 Personal history of COVID-19
CPT/HCPCS: 81003; 87086; 99213; G0463

== ENCOUNTER 2024-11-10 11:50 | Emergency (ER) | payer BC, SELFPAY ==
[2024-11-10 11:59] VITALS: BP 153/86; PULSE 95; RESP 16; TEMP 36.6; O2SAT 98
--- NOTE | 2024-11-10 12:32 | ED_ITS ---
HPI - Abdominal Pain General Chief Complaint: Abdominal Pain Stated Complaint: Abdominal Pain Time Seen by Provider: 11/10/24 12:33 Source: patient, RN notes reviewed and old records reviewed Mode of arrival: ambulatory Limitations: no limitations History of Present Illness HPI narrative: 39-year-old male presents to the [facility] with left-sided abdominal pain that will come up at 4:00 a.m.. States that he has had some increased belching, last bowel movement was 8:00 a.m. this morning which he reports was his normal. Did urinate at 10:00 a.m. without issue. States that his urine is darker than normal. Unable to urinate in clinic. During exam patient is now pain-free. Unable to reproduce pain with palpation. Patient does drink a lot of sweet tea Onset (ago): hour(s) Treatments prior to arrival: other ( Tylenol, Pepto-Bismol) Related Data Home Medications Medication Instructions Recorded Confirmed Last Taken Type eslicarbazepine 800 mg tablet 800 mg PO DAILY 06/01/19 07/06/24 Unknown History (Aptiom) lamotrigine 200 mg tablet 600 mg PO BID 10/12/19 11/10/24 Unknown History eslicarbazepine 600 mg tablet mg 11/10/24 Unknown History (Aptiom) Allergies Allergy/AdvReac Type Severity Reaction Status Date / Time Penicillins Allergy Severe Seizure Verified 11/10/24 12:08 aspirin Allergy Unknown Unknown Verified 11/10/24 12:08 Review of Systems Review of Systems: All systems reviewed & are unremarkable except as noted in HPI and below Constitutional: Constitutional: Reports no additional constitutional complaints ENT: Reports system reviewed and no additional complaints, except as documented Cardiovascular: Cardiovascular: Reports no additional cardiovascular complaints, Denies chest pain and Denies dyspnea Respiratory: Respiratory: Reports no additional respiratory complaints, Denies chest congestion, Denies cough and Denies dyspnea Gastrointestinal: Gastrointestinal: Reports as per HPI Musculoskeletal: Musculoskeletal: Reports no additional musculoskeletal complaints Integumentary/Breasts: Skin/Breast: Reports system reviewed and no additional complaints, except as docu [facility] Past Medical History Medical History Dysuria Acute non-recurrent maxillary sinusitis BMI 35.0-35.9,adult Hypersomnia history of LUISA on home sleep study 5 years ago untreated. Acute sinusitis Vitamin B12 deficiency (04/28/23) level low at 347 with goal greater than 400 with hemoglobin 14.4 on 04/28/2023. Ear itching Otitis externa, fungal, right ear Hypothyroid Enlarged thyroid (~05/11/12) Multinodular goiter on ultrasound 02/23/2023 with 5.6 cm nodule right lobe and 10.1 cm nodule in the left lobe increased from previous study. TSH normal at 2.02 on 04/28/2023. BMI 36.0-36.9,adult Obesity (BMI 35.0-39.9 without comorbidity) Seborrhea ear canal Cellulitis ear and ear canal Left ankle sprain Left foot pain (~08/2021) High cholesterol Epilepsy Right wrist pain Right hand pain COVID-19 (07/04/20) COVID test on 07/11/2020 positive Pharyngitis Exposure to COVID-19 virus Right otitis externa Superficial laceration of scalp Body mass index (BMI) 40.0-44.9, adult (01/06/19) Surgical History Surgical History H/O foot surgery H/O hand surgery Family History Family History Mother Family history of bipolar disorder Hypertension Other Heart disease Social History Social History Social History: Caffeine-tea Smoking status: Former smoker Alcohol intake: former Substance use: never Substance use type: does not use Lack of Transportation: No Lack of Food: Never True Current Housing: Decline to Answer Concerned About Future Housing: Decline to Answer Difficulty Paying Gas/Electric Bills: Decline to Answer Difficulty Paying for Meds: YES Currently Unemployed: No Education: Bachelor's Degree Difficulty w/ Childcare or Family Care: Decline to Answer Living arrangements: with family Occupation/Education: unemployed Gender identity (if verbalized by the patient): Male Comments At the time of my signature, I reviewed and agree with the nursing past medical, surgical, social, and family history. There is no relevant family history pertinent to the patient complaint. Exam Const: General: cooperative, healthy appearing, comfortable, no acute distress, well developed, alert and well nourished Nutritional Appearance: well nourished and obese Orientation/consciousness: patient oriented x3 Limitations: no limitations HENMT: Head: normal to inspection Eyes: General: appearance normal, both eyes and all related structures Neck: Neck: normal visual inspection, full ROM, no lymphadenopathy and no meningeal signs Chest: Chest palpation & inspection: normal inspection of the chest Resp: Effort & Inspection: normal respiratory effort and able to speak in complete sentences Auscultation: clear to auscultation bilaterally, no crackles, no rales, no rhonchi and no wheezes Cardio: Rate: regular rate GI: Inspection: normal to inspection GI Palp: No abdominal tenderness, Yes Soft to palpation, No Tenderness to palpation present (GI) and No Guarding due to palpation present (GI) Percussion: Yes normal to percussion Auscultation: normal bowel sounds Skin: General skin exam: normal color and no rashes or lesions noted Neuro: General: patient oriented x3, gait normal, moves all extremities and no meningeal signs Cognition (Neuro): normal cognition Speech: normal speech Gait exam (Neuro): Normal gait present Extrem: General: normal to inspection, full ROM, capillary refill normal and normal gait Psych: Appearance: grossly normal and well kempt Mental Status: mental status grossly normal Speech and movement: Normal speech and movement present and Clear speech present Affect: normal affect Attitude: cooperative Course Course Level of Care: Express Care Visit Vital Signs Vital signs: Vital Signs Temperature 97.9 F 11/10/24 11:59 Pulse Rate 95 11/10/24 11:59 Respiratory Rate 16 11/10/24 11:59 Blood Pressure 153/86 H 11/10/24 11:59 Pulse Oximetry 98 11/10/24 11:59 Temperature 97.9 F 11/10/24 11:59 Pulse Rate 95 11/10/24 11:59 Respiratory Rate 16 11/10/24 11:59 Blood Pressure 153/86 H 11/10/24 11:59 Pulse Oximetry 98 11/10/24 11:59 Reviewed MDM - Abdominal Pain MDM Narrative Medical decision making narrative: patient sitting in exam room. Patient is nontoxic, vitals are stable Except blood pressure mildly elevated. Patient reports that he was woken up with left- sided abdominal/flank pain. States it has traveled down into the groin area, on exam patient is pain free. Suspect that this patient due to signs and symptoms most likely passed a kidney stone. Unable to do evaluation in clinic. CT scan not a service we offered in the [facility]. Discussed transferring to the ER which they are declining at this time. Discussed in great detail with patient and dad to increased water, Gatorade, decreased Tea intake. we also discussed signs and symptoms to proceed to the ER of their choice if symptoms return. Discussed the importance of following up with primary care provider answered all questions patient and father had. Appropriate for outpatient treatment with close follow-up Discharge instructions reviewed with patient, as well as provided in writing per nursing staff. The instructions also include specific and strict return/GO TO THE ER as well as f/u information. All questions have been answered, and the patient deny any further questions with discharge and discharge plan. Some parts of this dictation were generated by voice recognition software and may contain typographical and/or grammatical inaccuracies. Differential Diagnosis Differential diagnosis: Likely abdominal pain, calculus of kidney, constipation, diverticulitis, gastroenteritis and small bowel obstruction Critical Care Time Critical Care Time Critical Care Time: No Discharge Plan Discharge Clinical Impression: Acute left flank pain Patient Disposition: Home Condition: Stable Instructions: Antibiotic Form, Kidney Stones (ED), Flank Pain (ED) Additional Instructions: your presentation and exam is consistent with that you probably passed a kidney stone. Decreased the amount of sweet tea you drink. Increase the amount of water and Gatorade. Please follow-up with Dr. Choudhury within 2 weeks. Your blood pressure is 153/86. This needs to be rechecked. He if symptoms return or you have new abdominal pain, chest pain please proceed to the emergency room of your choice. Patient Language: Indonesian Prescriptions: No Action Aptiom 600 mg tablet lamotrigine 200 mg tablet 600 mg PO BID Aptiom 800 mg tablet 800 mg PO DAILY sulfamethoxazole-trimethoprim 800-160 mg tablet 1 tablet PO Q12H Qty: 20 0RF Follow-up/Referrals: Bertin Choudhury MD [Primary Care Provider] - 2 Weeks ([facility] follow up ) Stand Alone Forms: Work/School Release IP Time of Disposition: 12:59
== END 2024-11-10 13:04 | disposition home or self-care (01) ==
PROVIDERS: Emergency Provider Nurse Practitioner; PCP Family Medicine
DX: R10.9 Unspecified abdominal pain (principal); E03.9 Hypothyroidism, unspecified; Z79.899 Other long term (current) drug therapy; Z87.891 Personal history of nicotine dependence
CPT/HCPCS: 99212; G0463

== ENCOUNTER 2025-02-19 13:17 | Emergency (ER) | payer BC, SELFPAY ==
[2025-02-19 13:20] VITALS: BP 173/110; PULSE 80; RESP 20; TEMP 36.6; O2SAT 97
[2025-02-19 13:24] VITALS: O2SAT 97
--- NOTE | 2025-02-19 13:53 | PC.NURSE ---
Pt is asking to take his home seizure medications, that he has in his pocket in a bottle with no label on it. Per EDP it is ok to take his seizure medications.
--- NOTE | 2025-02-19 14:19 | ED.GENADULT ---
HPI - General Adult General Chief complaint: Seizure Stated complaint: Seizure Time Seen by Provider: 02/19/25 13:44 History of Present Illness HPI narrative: Patient 39-year-old gentleman presents emergency department chief complaint of seizure the patient has prior history of seizures and reports that he had a seizure today or the patient was found to be hypoglycemic with a blood sugar of 50 but blood sugar had, by the time arrival emergency department to 101 patient currently has no complaints Related Data Home Medications ?Medication ?Instructions ?Recorded ?Confirmed ?Last Taken ?Type lamotrigine 200 mg tablet 600 mg PO BID 10/12/19 02/19/25 Unknown History eslicarbazepine 600 mg tablet 1,200 mg PO DAILY 01/25/25 02/19/25 Unknown History (Aptiom) atorvastatin 20 mg tablet 20 mg PO QPM 02/19/25 02/19/25 Unknown History Allergies Allergy/AdvReac Type Severity Reaction Status Date / Time Penicillins Allergy Severe Seizure Verified 02/19/25 13:26 aspirin Allergy Unknown Unknown Verified 02/19/25 13:26 Review of Systems Review of Systems: A 10 system review of systems was completed on the patient and is negative except for what is stated in the HPI. Nursing and ancillary documentation was reviewed. [facility] Past Medical History Medical History Dysuria Acute non-recurrent maxillary sinusitis BMI 35.0-35.9,adult Hypersomnia history of LUISA on home sleep study 5 years ago untreated. Acute sinusitis Vitamin B12 deficiency (04/28/23) level low at 347 with goal greater than 400 with hemoglobin 14.4 on 04/28/2023. Ear itching Otitis externa, fungal, right ear Hypothyroid Enlarged thyroid (~05/11/12) Multinodular goiter on ultrasound 02/23/2023 with 5.6 cm nodule right lobe and 10.1 cm nodule in the left lobe increased from previous study. TSH normal at 2.02 on 04/28/2023. BMI 36.0-36.9,adult Obesity (BMI 35.0-39.9 without comorbidity) Seborrhea ear canal Cellulitis ear and ear canal Left ankle sprain Left foot pain (~08/2021) High cholesterol Epilepsy Right wrist pain Right hand pain COVID-19 (07/04/20) COVID test on 07/11/2020 positive Pharyngitis Exposure to COVID-19 virus Right otitis externa Superficial laceration of scalp Body mass index (BMI) 40.0-44.9, adult (01/06/19) Surgical History Surgical History H/O foot surgery H/O hand surgery Family History Family History Mother Family history of bipolar disorder Hypertension Other Heart disease Social History Social History Social History: Caffeine-none Smoking status: Former smoker Alcohol intake: former Substance use: never Substance use type: does not use Lack of Transportation: No Lack of Food: Never True Current Housing: Decline to Answer Concerned About Future Housing: Decline to Answer Difficulty Paying Gas/Electric Bills: Decline to Answer Difficulty Paying for Meds: YES Currently Unemployed: No Education: Bachelor's Degree Difficulty w/ Childcare or Family Care: Decline to Answer Living arrangements: with family Occupation/Education: unemployed Gender identity (if verbalized by the patient): Male Exam Narrative: GENERAL: Well-appearing, well-nourished, and in no acute distress. HEAD: Normocephalic, atraumatic. EYES: PERRLA and EOMI. ENT: Nares clear, no rhinorrhea or epistaxis. Mucous membranes moist. NECK: Supple. CHEST: Clear to auscultation. No respiratory distress. HEART: Regular rate and rhythm. No murmur heard. Normal peripheral pulses. ABDOMEN: Soft, nontender, nondistended, normal active bowel sounds. EXTREMITIES: Normal range of motion. No edema. SKIN: Warm, dry, no rash. NEURO: No focal deficits. Alert and oriented x3. PSYCH: Normal mood and affect. Course Vital Signs Vital signs: Vital Signs Temperature 36.6 C 02/19/25 13:20 Pulse Rate 80 02/19/25 13:20 Respiratory Rate 20 02/19/25 13:20 Blood Pressure 173/110 H 02/19/25 13:20 Pulse Oximetry 97 02/19/25 13:20 Oxygen Delivery Room Air 02/19/25 13:20 Temperature 36.6 C 02/19/25 13:20 Pulse Rate 81 02/19/25 15:31 Respiratory Rate 19 02/19/25 15:31 Blood Pressure 163/105 H 02/19/25 15:31 Pulse Oximetry 96 02/19/25 15:31 Oxygen Delivery Room Air 02/19/25 13:24 Medical Decision Making MDM Narrative Medical decision making narrative: Differential diagnosis includes breakthrough seizure, electrolyte abnormality, Laboratory studies were obtained on the patient showed normal CBC CMP showed no acute abnormality Patient has had no further seizures in the emergency department patient be discharged home to follow-up his seizure specialist Vital Signs Vital Signs: Vital Signs Temperature 36.6 C 02/19/25 13:20 Pulse Rate 80 02/19/25 13:20 Respiratory Rate 20 02/19/25 13:20 Blood Pressure 173/110 H 02/19/25 13:20 Pulse Oximetry 97 02/19/25 13:20 Oxygen Delivery Room Air 02/19/25 13:20 Temperature 36.6 C 02/19/25 13:20 Pulse Rate 81 02/19/25 15:31 Respiratory Rate 19 02/19/25 15:31 Blood Pressure 163/105 H 02/19/25 15:31 Pulse Oximetry 96 02/19/25 15:31 Oxygen Delivery Room Air 02/19/25 13:24 Lab Data 02/19/25 15:09 02/19/25 15:09 Labs: Lab Results 02/19/25 02/19/25 Range/Units 13:22 15:09 WBC 7.2 (4.5-10.0) K/mm3 RBC 5.09 (4.6-6.20) M/mm3 Hgb 13.8 L (14.0-18.0) g/dL Hct 42.7 (42.0-52.0) % MCV 83.9 (80-100) fl MCH 27.1 (26-34) pg MCHC 32.3 (32-36) g/dl RDW 14.0 (11.5-14.5) % Plt Count 264 (150-375) k/mm3 MPV 9.6 (7.4-10.4) fl Immature Gran % (Auto) 0.4 (0-0.5) % Neut % (Auto) 70.1 (45.5-73.1) % Lymph % (Auto) 20.8 (18.3-44.2) % [place] % (Auto) 7.0 (2.6-8.5) % Eos % (Auto) 1.3 (0-4.4) % Baso % (Auto) 0.4 (0.2-1.2) % Lymph # (Auto) 1.49 (0.9-3.2) K/mm3 [place] # (Auto) 0.5 (0.1-0.6) K/mm3 Eos # (Auto) 0.1 (0-0.3) K/mm3 Baso # (Auto) 0.0 (0.0-0.1) K/mm3 Abs Immat Gran (auto) 0.03 (0.00-0.031) K/mm3 Absolute Neuts (auto) 5.0 (1.3-6.7) K/mm3 Absolute Nucleated RBC 0.000 (0.0-0.012) K/mm3 Nucleated RBC % 0.0 (0.0-0.2) % Sodium 141 (137-145) mmol/L Potassium 3.9 (3.4-5.0) mmol/L Chloride 104 (98-107) mmol/L Carbon Dioxide 27 (22-30) mmol/L Anion Gap 10 (4-12) mmol/L BUN 15 (9-20) mg/dL Creatinine 0.86 (0.7-1.3) mg/dL Estim Creat Clear Calc 138 ml/min Estimated GFR > 60 (59 - ) Glucose 95 (65-110) mg/dL POC Capillary Glucose 101 (65-105) mg/dl Calcium 9.9 (8.4-10.2) mg/dL Total Bilirubin 0.4 (0.2-1.3) mg/dL AST 34 (17-59) U/L ALT 42 (6-50) U/L Alkaline Phosphatase 93 (38-126) U/L Total Protein 8.0 (6.3-8.2) g/dL Albumin 4.7 (3.5-5.1) g/dL Discharge Plan Discharge Clinical Impression: Seizure Patient Disposition: Home Condition: Stable Instructions: Antibiotic Form, Epilepsy (ED), Recurrent Seizures in Adults (ED) Additional Instructions: Please follow-up with your neurologist Patient Language: Belarusian Prescriptions: No Action eslicarbazepine [Aptiom] 600 mg tablet 1,200 mg PO DAILY lamotrigine 200 mg tablet 600 mg PO BID clobetasol 0.05 % cream 1 applic topical BID Qty: 30 0RF Rx Instructions: External ear atorvastatin 20 mg tablet 20 mg PO QPM Follow-up/Referrals: Bertin Choudhury MD [Primary Care Provider, Family Practice]
[2025-02-19 15:14] LABS: Hematocrit 42.7 % (42.0-52.0); Hemoglobin 13.8 g/dL (14.0-18.0); Immature Granulocyte Percent A 0.4 % (0-0.5); Lymphocytes Absolute Auto 1.49 K/mm3 (0.9-3.2); Mean Corpuscular HGB Conc 32.3 g/dl (32-36); Mean Corpuscular Hemoglobin 27.1 pg (26-34); Mean Corpuscular Volume 83.9 fl (80-100); Nucleated Red Blood Cells Absolute Auto 0.000 K/mm3 (0.0-0.012); Nucleated Red Blood Cells Perc 0.0 % (0.0-0.2); Platelet Count Result 264 k/mm3 (150-375); Red Blood Count 5.09 M/mm3 (4.6-6.20); White Blood Count 7.2 K/mm3 (4.5-10.0)
[2025-02-19 15:29] LABS: Alanine Aminotransferase 42 U/L (6-50); Albumin Level 4.7 g/dL (3.5-5.1); Alkaline Phosphatase 93 U/L (38-126); Anion Gap 10 mmol/L (4-12); Aspartate Amino Transferase 34 U/L (17-59); Bilirubin,Total 0.4 mg/dL (0.2-1.3); Blood Urea Nitrogen 15 mg/dL (9-20); Calcium 9.9 mg/dL (8.4-10.2); Carbon Dioxide 27 mmol/L (22-30); Chloride 104 mmol/L (98-107); Estimated CRCL calculation 138 ml/min; Estimated Glomerular Filt Rate > 60; Glucose 95 mg/dL (65-110); Potassium 3.9 mmol/L (3.4-5.0); Sodium 141 mmol/L (137-145); Total Protein 8.0 g/dL (6.3-8.2)
[2025-02-19 15:31] VITALS: BP 163/105; PULSE 81; RESP 19; O2SAT 96
== END 2025-02-19 15:57 | disposition home or self-care (01) ==
PROVIDERS: Emergency Provider Emergency Medicine; PCP Family Medicine
DX: R56.9 Unspecified convulsions (principal); E03.9 Hypothyroidism, unspecified; Z79.899 Other long term (current) drug therapy; Z87.891 Personal history of nicotine dependence
CPT/HCPCS: 36415; 80053; 82948; 85025; 99283

== ENCOUNTER 2025-04-07 12:38 | Outpatient (CLI) | payer BC, SELFPAY ==
--- NOTE | ~2025-04-07 | US_ITS ---
EXAMINATION: US thyroid DATE: 04/07/2025 13:05 INDICATION: Nontoxic goiter, unspecified. TECHNIQUE: Multiple ultrasound images of the thyroid were obtained. COMPARISON: Ultrasound 02/15/2023, 02/25/2016 FINDINGS: The right thyroid lobe measures 7.8 x 3.5 x 3.5 cm. The left thyroid lobe measures 10.1 x 7.0 x 6.3 cm. There are nodules throughout the thyroid of similar ultrasound appearance without normal intervening parenchyma. IMPRESSION: 1. Multinodular goiter. Biopsy is likely not needed. Reviewed, dictated and finalized at location E.
== END 2025-04-07 12:39 | disposition home or self-care (01) ==
LOC: GOSHIMG 12:41
PROVIDERS: PCP Family Medicine; Visit Provider Otolaryngology
DX: E04.2 Nontoxic multinodular goiter (principal)
CPT/HCPCS: 76536